=== PATIENT | female | born 1960 | race African-American/Black ===

== ENCOUNTER → 2017-12-29 | Outpatient (CLI) | payer BC ==
[~2017-12-29] VITALS: Ht 160 cm; Wt 113.8 kg
[~2017-12-29] MED LIST: COZAAR50 MG PO; SYNTHROID25 MCG PO; VICTOZA 2-0.6 MG/0.1 SC
== END | disposition home or self-care (01) ==
LOC: AMB 09:45
PROVIDERS: Internal Medicine Gastroenterology
DX: Q39.8 Other congenital malformations of esophagus (principal); R10.13 Epigastric pain; Z86.010 Personal history of colon polyps; E11.9 Type 2 diabetes mellitus without complications; I10 Essential (primary) hypertension; Z90.49 Acquired absence of other specified parts of digestive tract; Z88.0 Allergy status to penicillin; Z68.41 Body mass index [BMI] 40.0-44.9, adult
CPT/HCPCS: 80048; 82948; 93005